=== PATIENT | female | born 1980 | race Caucasian/White ===

== ENCOUNTER 2020-02-15 09:06 | Emergency (ER) | payer MEDICAID ==
[~2020-02-15] VITALS: Ht 160 cm; Wt 71.7 kg
[2020-02-15 09:15] VITALS: BP 127/83
[2020-02-15] MEDS: IBUPROFEN 400 MG TAB PO ONE (09:39)
[2020-02-15 09:40] VITALS: BP 125/78
== END 2020-02-15 09:40 | disposition home or self-care (01) ==
LOC: MED 09:06
DX: M54.5 Low back pain (principal)
CPT/HCPCS: 81002; 81025; 99283